=== PATIENT | male | born 1955 | race Caucasian/White ===

== ENCOUNTER 2019-06-13 19:57 | Emergency (ER) | payer MEDICARE, MEDICAID, SELFPAY ==
[2019-06-13 19:58] VITALS: BP 137/63; PULSE 64; RESP 16; TEMP 36.6; O2SAT 95; BMI 36.6
--- NOTE | 2019-06-13 20:09 | ED_ITS ---
Entered by Peace Fitzpatrick, acting as scribe for Juvenal Monique MD, [facility] HPI - Neuro Symptoms/Deficit General: Chief Complaint: Neuro Symptoms/Deficit Stated Complaint: numbness and tingling Time Seen by Provider: 06/13/19 20:08 Source: patient, EMS and RN notes reviewed Mode of arrival: EMS Limitations: no limitations History of Present Illness: HPI Narrative: 63 yo male presents to ED with complaints of R sided numbness. He said it began about [id number] this morning. He had tingling on the R side of his neck, his R arm and R leg. He said he could hardly get around when it began, becoming very short of breath. He said he didn't come in earlier because he was hoping it would get better. He said his whole body became jittery and he had to catch the wall to keep from falling. He said the jitters happened one other time 5 years ago. He sat down on the floor until it passed. The patient has a strong family history of strokes. Onset (ago): hour(s) (12) Time: 08:30 Timing confirmed by: other (patient) Location: right arm (tingle), right leg (tingle) and other (R side neck tingle) History of same: No Severity: mild Quality: tingling Relieving factors: none Exacerbating factors: none Context: sudden onset On Anticoagulants: Yes Associated symptoms: Reports chest pain and tingling; Deny headache(s), nausea or vomiting Treatments Prior to Arrival: none Review of Systems General: Reports: 10 or more systems reviewed and unremarkable except in HPI and below Const: Denies: fever, chills or body aches Eyes: Reports: blind spots; Denies: change in vision or blurry vision ENMT: Denies: throat pain, enlarged tonsils, painful swallowing, hoarseness, mouth pain or swelling of lips/tongue Card: Reports: chest pain; Denies: palpitations, irregular heart rhythm, edema or swelling of feet/ankles Resp: Denies: shortness of breath, productive cough or non-productive cough GI: Denies: abdominal pain, nausea or vomiting : Denies: flank pain, painful urination, urinary frequency, urinary urgency or urinary hesitancy Musc: Denies: neck pain, back pain or extremity swelling Skin/Breast: Denies: rash, itching or redness Neuro: Denies: headache, numbness in extremities or weakness in extremities Endo: Denies: excessive urination, excessive thirst or tired all the time PFSH ED PFSH: Social History Smoking and tobacco status: former smoker NIH stroke score NIHSS: Level Of Consciousness - 1a: 0 Level Of Consciousness Questions - 1b: Both Correct Level Of Consciousness Commands - 1c: Both Correct Best Gaze - 2: Normal Visual Stone - 3: No Visual Loss Facial Palsy - 4: Normal Motor Arm Right - 5: No Drift Motor Arm Left - 5: No Drift Motor Leg Right - 6: No Drift Motor Leg Left - 6: No Drift Limb Ataxia - 7: Absent Sensory - 8: Normal Best Language - 9: No Aphasia Dysarthia - 10: Normal Extinction And Inattention - 11: 0 Score: Total Score: 0 Physical Exam Const: COMMON NORMALS: no apparent distress, average body habitus, oriented x3, no limitations, healthy appearing, alert and well nourished HENMT: COMMON NORMALS: normocephalic, head/scalp atraumatic and moist oral mucous membranes HEAD & SCALP: normocephalic and atraumatic Eye: COMMON NORMALS: PERRL, EOMs intact bilaterally, conjunctivae normal and no scleral icterus CONJUNCTIVA: Yes conjunctivae normal PUPIL: Yes PERRL Neck/C-Spine: COMMON NORMALS: full ROM, supple, no meningeal signs, no JVD and no carotid bruits Chest: COMMONS NORMALS: inspection of chest normal and palpation of chest normal Resp: COMMON NORMALS: normal respiratory effort, no retractions, no use of accessory muscles, clear to auscultation bilaterally and percussion normal AUSCULTATION: clear to auscultation bilaterally PERCUSSION: percussion normal Cardio: COMMON NORMALS: no JVD, regular rate, regular rhythm, S1 normal heart sound, S2 normal heart sound, no gallops, no clicks, no murmurs, no rub and peripheral pulses 2+ throughout RATE: regular rate RHYTHM: regular rhythm HEART SOUNDS: S1 normal and S2 normal PERIPHERAL PULSES: pulses 2+ throughout GI: COMMON NORMALS: normal to inspection, nondistended, normoactive bowel sounds, soft to palpation, non-tender, no hepatosplenomegaly, no masses and no bruits PALPATION: Yes soft and Yes no hepatosplenomegaly : COMMON NORMALS: Yes no CVA tenderness BLADDER/KIDNEY EXAM: Yes no CVA tenderness Back/Pelvis: COMMON NORMALS: no CVA tenderness Extremity: COMMON NORMALS: normal to inspection, full ROM, normal capillary refill, no calf tenderness and no pedal edema Neuro: COMMON NORMALS: oriented x3 SENSORIUM/ORIENTATION: Yes alert MENINGEAL SIGNS: Yes no meningeal signs Skin: COMMON NORMALS: no rashes or lesions noted, no wounds, skin turgor normal, no jaundice, no petechiae and no mottling GENERAL SKIN EXAM: no rashes or lesions noted and turgor normal Course Vital Signs: Vital signs: Vital Signs Temperature 97.8 F 06/13/19 19:58 Pulse Rate 71 06/13/19 23:05 Respiratory Rate 16 06/13/19 23:05 Blood Pressure 120/48 06/13/19 23:05 Pulse Oximetry 97 06/13/19 23:05 MDM - Neuro Symptoms/Deficit 2 MDM Narrative: Medical decision making narrative: Patient with facial paresthesia and was concerned that he may have had a CVA. Symptoms started early this morning. CT was negative examination unremarkable. NIH 0. He is discharged home with no new orders. He is to follow-up with his primary care provider Medical Records: Attestation: I reviewed the patient's medical records. Lab Data: Attestation: I reviewed the patient's lab results. Labs: Lab Results 06/13/19 06/13/19 06/13/19 Range/Units 20:44 20:44 21:00 WBC 8.0 (4.0-10.0) 10^3/ uL RBC 4.60 (4.1-5.3) 10^6/u L Hgb 11.4 L (11.7-16.6) g/dL Hct 38.3 L (42.0-52.0) % MCV 83.3 (80-94) fL MCH 24.8 L (28.0-34.0) pg MCHC 29.8 L (30.0-36.0) g/dL RDW 17.4 H (12.1-15.1) % Plt Count 229 (130-400) 10^3/c mm MPV 11.5 H (7.4-10.4) fL Neut % (Auto) 61.9 % Lymph % (Auto) 21.6 % [place] % (Auto) 11.3 % Eos % (Auto) 4.0 % Baso % (Auto) 0.6 % Neut # (Auto) 5.0 (1.8-7.7) 10^3/u L Lymph # (Auto) 1.7 (0.8-4.8) 10^3/u L [place] # (Auto) 0.9 (0.2-0.9) 10^3/u L Eos # (Auto) 0.3 (0.0-0.8) 10^3/u L Baso # (Auto) 0.1 (0.0-0.1) 10^3/u L Nucleated RBC % (a uto) 0 % Nucleated RBCs # 0.0 /100WBC Sodium 139 (136-145) mmol/L Potassium 4.3 (3.5-5.1) mmol/L Chloride 102 (98-107) mmol/L Carbon Dioxide 23 (22-29) mmol/L Anion Gap 18.3 (5-19) BUN 20 (8-23) mg/dL Creatinine 1.0 (0.7-1.2) mg/dL GFR Calculation 75.7 L (90-130) mL/min Glucose 105 (65-115) mg/dL Calcium 9.4 (8.5-10.5) mg/dL Total Bilirubin 0.2 (0.15-1.2) mg/dL AST 20 (0-40) U/L ALT 29 (0-41) U/L Alkaline Phosphata se 102 (40-130) IU/L Total Protein 8.2 (6.6-8.7) g/dL Albumin 3.8 (3.5-5.2) g/dL Globulin 4.4 (1.3-4.6) g/dL Urine Color Straw (Yellow) Urine Appearance Clear (CLEAR) Urine pH 5 (5-7) Ur Specific Gravit y 1.015 (1.005-1.030) Urine Protein Neg (Negative) Urine Glucose (UA) Norm (Normal) Urine Ketones Negative (Negative) Urine Occult Blood Neg (Negative) Urine Nitrate Negative (Negative) Urine Bilirubin Neg (NEGATIVE) Urine Urobilinogen Norm (Negative) mg/dL Ur Leukocyte Hyacinth ase Negative (Negative) Imaging Data^: CT Head: Radiologist's impression: [address] [address] [address] Scan Report Signed Patient: Chandler Cool #: [id number] : 7Acct#:[id number] Age/Sex: 63 / MADM Date: 06/13/19 Loc: ERRoom/Bed: Attending Dr: Ordering Provider/Ordering MD: Juvenal Monique MD, [facility] Date of Service: 06/13/19 Procedure(s): CT head wo con* [id number] Accession Number(s): [id number] Report Number: [id number] PROCEDURE INFORMATION: Exam: CT Head Without Contrast Exam date and time: 06/13/2019 8:34 PM Age: 63 years old Clinical indication: Weakness, extremity and weakness, facial; Right; Additional info: Stroke like symptoms TECHNIQUE: Imaging protocol: Computed tomography of the head without contrast. Total DLP: 882.63 mGy-cm Radiation optimization: All CT scans at this facility use at least one of these dose optimization techniques: automated exposure control; mA and/or kV adjustment per patient size (includes targeted exams where dose is matched to clinical indication); or iterative reconstruction. COMPARISON: No relevant prior studies available. FINDINGS: Brain: There is hypoattenuation in the periventricular and subcortical white matter consistent with chronic microvascular disease. There is no significant mass effect or midline shift. No sign of acute infarction. There is no acute intracranial hemorrhage. Ventricles: Normal. No ventriculomegaly. Bones/joints: The calvarium is intact. Sinuses: The paranasal sinuses are clear. Mastoid air cells: The mastoid air cells are clear. Orbits: Left phthisis bulbi. Soft tissues: The visible extracranial soft tissues are unremarkable. CT/CT head wo con* [id number] IMPRESSION: No acute findings. Radiation Dose CTDIVOL = (mGy): DLP = 882.63 (mGy-cm) Dictated By:Raj Herrera MD Signed By:Raj Herrera MDSigned Date/Time:06/13/192144 DD/ EKG Data^: EKG 1: Attestation: I personally reviewed and interpreted this EKG as follows: EKG interpretation date: 06/13/19 EKG interpretation time: 21:04 Prior EKG tracings: not available for review Interpretation: Normal sinus rhythm. Moderate intraventricular conduction delay. Heart rate 63. No ST changes. Discharge Plan Discharge Patient Disposition: Home, Self-Care Clinical Impression: Paresthesia Condition: Stable Prescriptions: Continued furosemide 40 mg Tablet 40 mg PO BID RF: 0 atorvastatin 40 mg Tablet 40 mg PO DAILY RF: 0 carvedilol 6.25 mg Tablet 6.25 mg PO BID RF: 0 trazodone 50 mg Tablet 50 mg PO DAILY RF: 0 sertraline 100 mg Tablet 100 mg PO DAILY RF: 0 clopidogrel 75 mg Tablet 75 mg PO DAILY RF: 0 digoxin 250 mcg (0.25 mg) Tablet 250 mcg PO DAILY RF: 0 Iron (ferrous sulfate) 325 mg (65 mg iron) Tablet 325 mg PO DAILY RF: 0 Stool Softener 100 mg Capsule 100 mg PO DAILY RF: 0 gabapentin 300 mg Capsule 300 mg PO TID RF: 0 aspirin 81 mg Tablet,Chewable 81 mg PO DAILY RF: 0 Pain Reliever Plus 250-250-65 mg Tablet 1 tab PO Q6H PRN (Reason: Pain) RF: 0 Dairy Aid 3,000 unit Tablet,Chewable 3,000 unit PO QID PRN (Reason: eating dairy) RF: 0 [place]-3 Fish Oil 300-1,000 mg Capsule PO DAILY RF: 0 Entresto 49-51 mg Tablet 1 tab PO BID RF: 0 Discharge Orders: Discharge Order (Routine); Ordered 06/13/19 Ordered By: Juvenal Monique Discharge Diet: Usual diet Discharge Activity: Resume usual activity Patient Instructions: Paresthesia (ED) Activity Restrictions/Additional Instructions: Return for any new or worsening symptoms. Follow-up with your primary care provider within 3 days. Take your medications as prescribed. Discharge Date/Time: 06/13/19 23:05 Coding Level of Care Code ED Spinner Operator for Chg Fwd Exam Comprehensive The documentation recorded by the Nanette sosa Valerie R, accurately reflects the service I personally performed and the decisions made by Eneida thornton Adegoke I, MD, [facility] Jun 13, 2019 19:57
--- NOTE | 2019-06-13 20:27 | ECG_ITS ---
Measurements Intervals [place] Rate: 63 P: -2 VT: 139 QRS: 1 QRSD: 108 T: 75 QT: 390 QTc: 402 SINUS RHYTHM MODERATE INTRAVENTRICULAR CONDUCTION DELAY [105+ ms QRS DURATION, 80+ ms Q/S IN V1/V2, NO Q AND 60+ ms R IN I/aVL/V5/V6] NONSPECIFIC ST & T-WAVE ABNORMALITY No previous ECG available for comparison Electronically Signed On 06-14-2019 9:13:22 PIG BREEDER by Kvng Belcher M.D. [email or web address]
--- NOTE | 2019-06-13 20:27 | CTR_ITS ---
PROCEDURE INFORMATION: Exam: CT Head Without Contrast Exam date and time: 06/13/2019 8:34 PM Age: 63 years old Clinical indication: Weakness, extremity and weakness, facial; Right; Additional info: Stroke like symptoms TECHNIQUE: Imaging protocol: Computed tomography of the head without contrast. Total DLP: 882.63 mGy-cm Radiation optimization: All CT scans at this facility use at least one of these dose optimization techniques: automated exposure control; mA and/or kV adjustment per patient size (includes targeted exams where dose is matched to clinical indication); or iterative reconstruction. COMPARISON: No relevant prior studies available. FINDINGS: Brain: There is hypoattenuation in the periventricular and subcortical white matter consistent with chronic microvascular disease. There is no significant mass effect or midline shift. No sign of acute infarction. There is no acute intracranial hemorrhage. Ventricles: Normal. No ventriculomegaly. Bones/joints: The calvarium is intact. Sinuses: The paranasal sinuses are clear. Mastoid air cells: The mastoid air cells are clear. Orbits: Left phthisis bulbi. Soft tissues: The visible extracranial soft tissues are unremarkable. CT/CT head wo con* [id number] IMPRESSION: No acute findings. Radiation Dose CTDIVOL = (mGy): DLP = 882.63 (mGy-cm)
[2019-06-13 20:54] LABS: Basophils # 0.1 10^3/uL (0.0-0.1); Basophils % 0.6 %; Eosinophils # 0.3 10^3/uL (0.0-0.8); Hematocrit 38.3 % (42.0-52.0); Hemoglobin 11.4 g/dL (11.7-16.6); Lymphocytes # 1.7 10^3/uL (0.8-4.8); Lymphocytes % 21.6 %; Mean Corpuscular HGB Conc 29.8 g/dL (30.0-36.0); Mean Corpuscular Hemoglobin 24.8 pg (28.0-34.0); Mean Corpuscular Volume 83.3 fL (80-94); Mean Platelet Volume 11.5 fL (7.4-10.4); Monocytes # 0.9 10^3/uL (0.2-0.9); Monocytes % 11.3 %; Neutrophils % 61.9 %; Nucleated Red Blood Cells % 0 %; Platelet Count 229 10^3/cmm (130-400); Red Cell Distribution Width 17.4 % (12.1-15.1)
[2019-06-13 21:04] LABS: Add Urine Microscopic? NO
[2019-06-13 21:07] LABS: Alanine Aminotransferase 29 U/L (0-41); Albumin Level 3.8 g/dL (3.5-5.2); Alkaline Phosphatase 102 IU/L (40-130); Anion Gap 18.3 (5-19); Aspartate Amino Transferase 20 U/L (0-40); Blood Urea Nitrogen 20 mg/dL (8-23); Calcium 9.4 mg/dL (8.5-10.5); Carbon Dioxide 23 mmol/L (22-29); Chloride 102 mmol/L (98-107); Globulin 4.4 g/dL (1.3-4.6); Glomerular Filtration Rate 75.7 mL/min (90-130); Glucose 105 mg/dL (65-115); Potassium 4.3 mmol/L (3.5-5.1); Sodium 139 mmol/L (136-145); Total Bilirubin 0.2 mg/dL (0.15-1.2); Total Protein 8.2 g/dL (6.6-8.7)
[2019-06-13 21:28] LABS: Bilirubin Urine Neg (NEGATIVE); Blood Urine Neg (Negative); Glucose Urine UA Norm (Normal); Ketones Urine Negative (Negative); Leukocyte Esterase Urine Negative (Negative); Nitrate Urine Negative (Negative); Protein Urine Neg (Negative); Specific Gravity, Urine 1.015 (1.005-1.030); Urine Appearance Clear (CLEAR); Urine Color Straw (Yellow); Urobilinogen Urine Norm (Negative); pH Urine 5 (5-7)
[2019-06-13 21:44] VITALS: BP 125/51; PULSE 67; RESP 17; O2SAT 95
[2019-06-13] MEDS: acetaminophen 500 mg Tablet 1000 MG PO (22:09)
[2019-06-13 23:05] VITALS: BP 120/48; PULSE 71; RESP 16; O2SAT 97
== END 2019-06-13 23:05 | disposition home or self-care (01) ==
PROVIDERS: Emergency Provider Family Medicine
DX: R20.2 Paresthesia of skin (principal); Z87.891 Personal history of nicotine dependence; Z82.3 Family history of stroke
CPT/HCPCS: 70450; 80053; 81003; 85025; 93005; 99281; 99282; 99283; A9270

== ENCOUNTER 2020-09-16 13:09 | Emergency (ER) | payer MEDICARE, MEDICAID, SELFPAY ==
[2020-09-16 13:12] VITALS: BP 169/79; PULSE 92; RESP 18; O2SAT 93; BMI 36.7
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
[2020-09-16 13:51] LABS: Basophils # 0.1 10^3/uL (0.0-0.1); Basophils % 0.7 %; Eosinophils # 0.3 10^3/uL (0.0-0.8); Eosinophils % 3.6 %; Hematocrit 34.4 % (42.0-52.0); Hemoglobin 9.8 g/dL (11.7-16.6); Lymphocytes # 0.9 10^3/uL (0.8-4.8); Lymphocytes % 12.5 %; Mean Corpuscular HGB Conc 28.5 g/dL (30.0-36.0); Mean Corpuscular Hemoglobin 22.8 pg (28.0-34.0); Mean Platelet Volume 11.3 fL (7.4-10.4); Monocytes # 0.5 10^3/uL (0.2-0.9); Monocytes % 7.1 %; Neutrophils % 75.2 %; Nucleated Red Blood Cells % 0 %; Platelet Count 244 10^3/cmm (130-400); Red Cell Distribution Width 22.6 % (12.1-15.1); White Blood Count 7.5 10^3/uL (4.0-10.0)
[2020-09-16 14:14] LABS: Slide Review Slide Review Perform
[2020-09-16 14:20] LABS: Alanine Aminotransferase 36 U/L (0-41); Albumin Level 3.7 g/dL (3.5-5.2); Alkaline Phosphatase 98 IU/L (40-130); Anion Gap 16.3 (5-19); Aspartate Amino Transferase 27 U/L (0-40); Blood Urea Nitrogen 11 mg/dL (8-23); Calcium 8.7 mg/dL (8.5-10.5); Carbon Dioxide 23 mmol/L (22-29); Chloride 103 mmol/L (98-107); Globulin 3.9 g/dL (1.3-4.6); Glomerular Filtration Rate 97.3 mL/min (90-130); Glucose 89 mg/dL (65-115); Osmolality Calculated 285 mOsm/kg (285-295); Potassium 4.3 mmol/L (3.5-5.1); Sodium 138 mmol/L (136-145); Thyroid Stimulating Hormone 2.72 uIU/mL (0.27-4.20); Total Bilirubin 0.2 mg/dL (0.15-1.2); Total Protein 7.6 g/dL (6.6-8.7)
[2020-09-16 14:21] LABS: Add Urine Microscopic? NO; Charge for UA Resulting for Rev
[2020-09-16 14:21] LABS: Acetaminophen < 5.0 ug/mL (10-30); Alcohol Level < 10 mg/dL (0-10); Salicylate < 0.3 mg/dL (3-10)
[2020-09-16 14:24] LABS: Bilirubin Urine Neg (Negative); Blood Urine Neg (Negative); Glucose Urine UA Norm (Normal); Ketones Urine Negative (Negative); Leukocyte Esterase Urine Negative (Negative); Nitrate Urine Negative (Negative); Protein Urine Neg (Negative); Urine Appearance Clear (CLEAR); Urine Color Yellow (Yellow); Urobilinogen Urine Norm (Negative); pH Urine 6 (5-7)
[2020-09-16 14:33] LABS: Amphetamines Screen Urine Negative (Negative); Barbiturates Screen Urine Negative (Negative); Benzodiazepines Screen Urine Positive (Negative); Cocaine Screen Urine Negative (Negative); Opiate Screen Urine Positive (Negative); PCP Screen Urine Negative (Negative); THC Screen Urine Negative (Negative)
--- NOTE | 2020-09-16 15:24 | PC.PHAR ---
PT BROUGHT IN A HANDWRITTEN LIST FROM HOME HEALTH. IT DIDN'T MATCH EXACTLY THE PHARMACY LIST. THE PT LOOKED AT THE LIST I MADE THAT MATCHED AND THE MEDS THAT DIDN'T MATCH. HE POINTED OUT THE ONES HE TAKES. HE WAS VERY SURE OF HIS MEDICATION.
[2020-09-16] MEDS: iohexol 300 mg/mL 100 mL Btl IV (16:02)
--- NOTE | 2020-09-16 17:00 | W.ED.PSYCH ---
HPI - Psych General: Chief Complaint: Psychiatric Symptoms Stated Complaint: depression Time Seen by Provider: 09/16/20 13:23 History of Present Illness: HPI Narrative: The patient is a 65-year-old male who comes to the ER complaining of unhappiness. He denies suicidal and homicidal ideations as well as hallucinations or psychotic features. He says he is going through stress and he has increased anxiety and nerves related to his living situation. He lives with his niece and her who are getting which is compromising his living situation. 3 weeks ago he also dropped a knife he was sharpening which punctured him in the left anterior thigh. He was on IV vancomycin at an outside facility and is taking doxycycline and clindamycin with a home health care nurse who comes every other day to pack the wound. He says that was not an attempt to hurt himself it was an accident and the knife dropped. He says he takes some medications but he is poorly compliant with them. He does take his antibiotics. Onset (ago): day(s) (1) Relieving factors: none Exacerbating factors: none Context: significant life stressor Associated psychiatric symptoms: depression Associated symptoms: Reports depression; Deny auditory hallucinations, visual hallucinations, homicidal ideation or suicidal ideation Review of Systems General: Reports: 10 or more systems reviewed and unremarkable except in HPI and below Const: Denies: fatigue Eyes: Denies: change in vision, blurry vision or eye redness ENMT: Denies: throat pain, swelling of lips/tongue, ear or mastoid pain or nasal congestion Card: Denies: chest pain, palpitations, irregular heart rhythm, edema, dyspnea on exertion or orthopnea Resp: Denies: dyspnea, productive cough or non-productive cough GI: Denies: abdominal pain, diarrhea or GI cramping : Denies: flank pain, urinary frequency or urinary urgency Musc: Denies: neck pain, back pain, extremity pain, joint pain, joint redness, limited range of motion or muscle weakness Skin/Breast: Denies: rash, pruritus, erythema, skin pain or skin tenderness Neuro: Denies: headache(s), numbness in extremities, weakness in extremities, sensory changes, difficulty walking, dizziness, confusion or Slurred speech present Psych: Reports: depression; Denies: visual hallucinations, auditory hallucinations, suicidal ideation or homicidal ideation Endo: Denies: polyuria All/Imm: Denies: urticaria, throat swelling or tongue swelling PFSH ED PFSH: Social History Smoking and tobacco status: former smoker Physical Exam Const: COMMON NORMALS: no acute distress, average body habitus, patient oriented x3, no limitations, healthy appearing, alert and well nourished GENERAL APPEARANCE: cooperative, comfortable and well developed ORIENTATION/CONSCIOUSNESS: Yes awake, Yes oriented to person, Yes oriented to place and Yes oriented to time HENMT: COMMON NORMALS: normocephalic, external ears normal and Normal external nose present HEAD & SCALP: normal to inspection and normocephalic NOSE: Normal external nose present EXTERNAL EAR: Yes external ears normal MOUTH: Normal oral and palatal mucosa present THROAT: posterior oropharynx normal Eye: COMMON NORMALS: Equal, round and reactive pupils present and EOMs intact bilaterally GENERAL EYE: appearance normal, both eyes and all related structures PUPIL: Yes Equal, round and reactive pupils present Neck/C-Spine: COMMON NORMALS: full ROM, no lymphadenopathy, no meningeal signs and no JVD GENERAL: Yes normal visual inspection Lymph: LYMPHATIC: no lymphadenopathy noted Chest: COMMONS NORMALS: normal inspection of the chest and normal palpation of entire chest wall Resp: COMMON NORMALS: normal respiratory effort, No retractions, No use of accessory muscles, clear to auscultation bilaterally and percussion normal EFFORT & INSPECTION: Yes able to speak in complete sentences AUSCULTATION: clear to auscultation bilaterally PERCUSSION: percussion normal Cardio: COMMON NORMALS: no JVD, regular rate, regular rhythm, S1 normal heart sound present, S2 normal heart sound present and Peripheral pulses 2+ throughout RATE: regular rate RHYTHM: regular rhythm HEART SOUNDS: S1 normal heart sound present and S2 normal heart sound present PERIPHERAL PULSES: Peripheral pulses 2+ throughout GI: COMMON NORMALS: Normal to inspection, nondistended, normoactive bowel sounds present, Soft to palpation, non-tender and no masses INSPECTION: Yes normal to inspection PALPATION: Yes Soft to palpation : COMMON NORMALS: Yes no CVA tenderness BLADDER/KIDNEY EXAM: Yes no CVA tenderness Back/Pelvis: COMMON NORMALS: no CVA tenderness, thoracic and lumbar spine normal to inspection, no thoracic nor lumbar tenderness and thoraco-lumbar ROM normal Extremity: COMMON NORMALS: normal to inspection, full ROM, capillary refill normal, no joint enlargement and no pedal edema NARRATIVE EXTREMITY EXAM: 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 GENERAL: Yes normal exam except as noted Neuro: COMMON NORMALS: patient oriented x3, CN's II-XII intact bilaterally, moves all extremities, no focal motor deficits, no sensory deficits noted and gait normal SENSORIUM/ORIENTATION: Yes alert, Yes oriented to person, Yes oriented to place and Yes oriented to time MENINGEAL SIGNS: Yes no meningeal signs Psych: COMMON NORMALS: mental status grossly normal, Normal thought process present, cooperative, normal affect and speech normal ATTITUDE: Yes calm SPEECH: Yes normal speech MOOD & AFFECT: Yes depressed mood THOUGHT PROCESS: Normal thought process present THOUGHT CONTENT: No Suicidality present, No Homicidality present and No Hallucination(s) present Skin: COMMON NORMALS: no rashes or lesions noted NARRATIVE SKIN EXAM: Left anterior wound approximately 3 cm in diameter. Mild tender. No significant discharge from the wound. It is open. No packing present. He was given pain medication and it was packed after it was cleaned with iodine swabs. He gets it packed every other day by his home health nurse. No significant cellulitis changes to the skin. GENERAL SKIN EXAM: no rashes or lesions noted Course Vital Signs: Vital signs: Vital Signs Pulse Rate 92 09/16/20 13:12 Respiratory Rate 18 09/16/20 13:12 Blood Pressure 169/79 09/16/20 13:12 Pulse Oximetry 93 09/16/20 13:12 MDM - Psych MDM Narrative: Medical decision making narrative: The patient came in complaining of increased stress at home. He denies suicidal, homicidal, and psychotic features in the ED but says he is depressed about possibly losing his living situation related to his niece and her getting a divorce at the house where he lives. He was seen and evaluated by Dr. Barber who recommended discharge as he is not meeting inpatient criteria. The patient is now comfortable with going back to that house. He has a wound on his left anterior thigh. CT does not show abscess. It does show a cellulitis process which he is taking doxycycline and clindamycin daily to treat. He is followed by a home health care nurse every other day who packs his wound and checks up on him. I packed the wound myself today after cleaning it and he is stable for discharge back home. Lab Data: Labs: Lab Results 09/16/20 09/16/20 09/16/20 Range/Units 13:45 13:45 14:15 WBC 7.5 (4.0-10.0) 10^3/ uL RBC 4.30 (4.1-5.3) 10^6/u L Hgb 9.8 L (11.7-16.6) g/dL Hct 34.4 L (42.0-52.0) % MCV 80.0 (80-94) fL MCH 22.8 L (28.0-34.0) pg MCHC 28.5 L (30.0-36.0) g/dL RDW 22.6 H (12.1-15.1) % Plt Count 244 (130-400) 10^3/c mm MPV 11.3 H (7.4-10.4) fL Neut % (Auto) 75.2 % Lymph % (Auto) 12.5 % Bacon % (Auto) 7.1 % Eos % (Auto) 3.6 % Baso % (Auto) 0.7 % Neut # (Auto) 5.60 (1.8-7.7) 10^3/u L Lymph # (Auto) 0.9 (0.8-4.8) 10^3/u L Bacon # (Auto) 0.5 (0.2-0.9) 10^3/u L Eos # (Auto) 0.3 (0.0-0.8) 10^3/u L Baso # (Auto) 0.1 (0.0-0.1) 10^3/u L Nucleated RBC % (a uto) 0 % Nucleated RBCs # 0.0 /100WBC Sodium 138 (136-145) mmol/L Potassium 4.3 (3.5-5.1) mmol/L Chloride 103 (98-107) mmol/L Carbon Dioxide 23 (22-29) mmol/L Anion Gap 16.3 (5-19) BUN 11 (8-23) mg/dL Creatinine 0.8 (0.7-1.2) mg/dL GFR Calculation 97.3 (90-130) mL/min Glucose 89 (65-115) mg/dL Calculated Osmolal ity 285 (285-295) mOsm/k g Calcium 8.7 (8.5-10.5) mg/dL Total Bilirubin 0.2 (0.15-1.2) mg/dL AST 27 (0-40) U/L ALT 36 (0-41) U/L Alkaline Phosphata se 98 (40-130) IU/L Total Protein 7.6 (6.6-8.7) g/dL Albumin 3.7 (3.5-5.2) g/dL Globulin 3.9 (1.3-4.6) g/dL TSH 2.72 (0.27-4.20) uIU/ mL Urine Color Yellow (Yellow) Urine Appearance Clear (CLEAR) Urine pH 6 (5-7) Ur Specific Gravit y 1.010 (1.005-1.030) Urine Protein Neg (Negative) Urine Glucose (UA) Norm (Normal) Urine Ketones Negative (Negative) Urine Blood Neg (Negative) Urine Nitrate Negative (Negative) Urine Bilirubin Neg (Negative) Urine Urobilinogen Norm (Negative) mg/dL Ur Leukocyte Hyacinth ase Negative (Negative) Salicylates < 0.3 L (3-10) mg/dL Urine Opiates Scre en (Negative) ng/mL Acetaminophen < 5.0 L (10-30) ug/mL Ur Barbiturates Sc reen (Negative) ng/mL Ur Phencyclidine S crn (Negative) ng/mL Ur Amphetamines Sc reen (Negative) ng/mL U Benzodiazepines Scrn (Negative) ng/mL Urine Cocaine Scre en (Negative) ng/mL U Marijuana (THC) Screen (Negative) ng/mL Ethyl Alcohol < 10 (0-10) mg/dL 09/16/20 Range/Units 14:15 WBC (4.0-10.0) 10^3/ uL RBC (4.1-5.3) 10^6/u L Hgb (11.7-16.6) g/dL Hct (42.0-52.0) % MCV (80-94) fL MCH (28.0-34.0) pg MCHC (30.0-36.0) g/dL RDW (12.1-15.1) % Plt Count (130-400) 10^3/c mm MPV (7.4-10.4) fL Neut % (Auto) % Lymph % (Auto) % Bacon % (Auto) % Eos % (Auto) % Baso % (Auto) % Neut # (Auto) (1.8-7.7) 10^3/u L Lymph # (Auto) (0.8-4.8) 10^3/u L Bacon # (Auto) (0.2-0.9) 10^3/u L Eos # (Auto) (0.0-0.8) 10^3/u L Baso # (Auto) (0.0-0.1) 10^3/u L Nucleated RBC % (a uto) % Nucleated RBCs # /100WBC Sodium (136-145) mmol/L Potassium (3.5-5.1) mmol/L Chloride (98-107) mmol/L Carbon Dioxide (22-29) mmol/L Anion Gap (5-19) BUN (8-23) mg/dL Creatinine (0.7-1.2) mg/dL GFR Calculation (90-130) mL/min Glucose (65-115) mg/dL Calculated Osmolal ity (285-295) mOsm/k g Calcium (8.5-10.5) mg/dL Total Bilirubin (0.15-1.2) mg/dL AST (0-40) U/L ALT (0-41) U/L Alkaline Phosphata se (40-130) IU/L Total Protein (6.6-8.7) g/dL Albumin (3.5-5.2) g/dL Globulin (1.3-4.6) g/dL TSH (0.27-4.20) uIU/ mL Urine Color (Yellow) Urine Appearance (CLEAR) Urine pH (5-7) Ur Specific Gravit y (1.005-1.030) Urine Protein (Negative) Urine Glucose (UA) (Normal) Urine Ketones (Negative) Urine Blood (Negative) Urine Nitrate (Negative) Urine Bilirubin (Negative) Urine Urobilinogen (Negative) mg/dL Ur Leukocyte Hyacinth ase (Negative) Salicylates (3-10) mg/dL Urine Opiates Scre en Positive H (Negative) ng/mL Acetaminophen (10-30) ug/mL Ur Barbiturates Sc reen Negative (Negative) ng/mL Ur Phencyclidine S crn Negative (Negative) ng/mL Ur Amphetamines Sc reen Negative (Negative) ng/mL U Benzodiazepines Scrn Positive H (Negative) ng/mL Urine Cocaine Scre en Negative (Negative) ng/mL U Marijuana (THC) Screen Negative (Negative) ng/mL Ethyl Alcohol (0-10) mg/dL Discharge Plan Discharge Patient Disposition: Home Clinical Impression: Depression, Wound infection Condition: Stable Prescriptions: No Action tizanidine 2 mg tablet 2 mg PO Q8H PRN (Reason: MUSCLE SPASMS) RF: 0 metoprolol succinate 50 mg tablet extended release 24 hr 50 mg PO DAILY RF: 0 alprazolam 0.5 mg tablet 0.5 mg PO DAILY PRN (Reason: Anxiety) RF: 0 meclizine 25 mg Tablet 25 mg PO DAILY RF: 0 doxycycline monohydrate 100 mg capsule 100 mg PO DAILY RF: 0 ProAir HFA 90 mcg/actuation HFA aerosol inhaler 2 puff INHALATION Q4D PRN (Reason: WHEEZING, SHORTNESS OF BREATH) RF: 0 Flonase 50 mcg/actuation [place],Suspension 2 spray INTRANASAL DAILY RF: 0 Trulicity 0.75 mg/0.5 mL pen injector 0.75 mg SUBCUT Q7D RF: 0 multivitamin 1 tab PO DAILY RF: 0 furosemide 40 mg Tablet 40 mg PO BID RF: 0 atorvastatin 40 mg Tablet 40 mg PO DAILY RF: 0 carvedilol 6.25 mg Tablet 6.25 mg PO BID RF: 0 trazodone 50 mg Tablet 50 mg PO DAILY RF: 0 sertraline 100 mg Tablet 100 mg PO DAILY RF: 0 clopidogrel 75 mg Tablet 75 mg PO DAILY RF: 0 digoxin 250 mcg (0.25 mg) Tablet 250 mcg PO DAILY RF: 0 ferrous sulfate [Iron (ferrous sulfate)] 325 mg (65 mg iron) Tablet 325 mg PO DAILY RF: 0 docusate sodium [Stool Softener] 100 mg Capsule 100 mg PO DAILY RF: 0 gabapentin 300 mg Capsule 300 mg PO TID RF: 0 aspirin 81 mg Tablet,Chewable 81 mg PO DAILY RF: 0 Pain Reliever Plus 250-250-65 mg Tablet 1 tab PO Q6H PRN (Reason: Pain) RF: 0 Entresto 49-51 mg Tablet 1 tab PO BID RF: 0 Discharge Orders: Discharge ED (Routine); Ordered 09/16/20 Ordered By: Ruben Burt Referrals: Chase Cai DO [Primary Care Provider] - Discharge Diet: Advance as tolerated Discharge Activity: Resume usual activity Patient Instructions: Wound Infection (ED), Cellulitis (ED), Depression (ED), Opioid Safety Activity Restrictions/Additional Instructions: 1. Infected leg wound : CT does show there is an infection surrounding the lesion and you do take antibiotics for this already. Please follow-up with your primary care physician in a couple days for a wound check and continue to have your home health care nurse, and packed this. Make sure you take your antibiotics and your medications at home as directed. 2. Please return to the ER with any thoughts of hurting yourself or others. Make sure you follow-up with your primary care physician in a couple days to discuss your depression and life stressors. Coding Level of Care Code ED [employer] Specialist for [employer] F[employer] Exam Comprehensive
[2020-09-16] MEDS: morphine 4 mg/mL SDV 1 mL 2 MG IVP (17:03)
[2020-09-16 17:48] VITALS: PULSE 102; RESP 17; O2SAT 93
== END 2020-09-16 17:49 | disposition home or self-care (01) ==
PROVIDERS: Emergency Provider Family Medicine; PCP Family Medicine
DX: F32.9 Major depressive disorder, single episode, unspecified (principal); L08.89 Other specified local infections of the skin and subcutaneous tissue; Z87.891 Personal history of nicotine dependence; Z79.899 Other long term (current) drug therapy
CPT/HCPCS: 36415; 73701; 80053; 80306; 80307; 81003; 84443; 85025; 96374; 99283; J2270; Q9967

== ENCOUNTER 2022-08-16 04:04 | Emergency (ER) | payer MEDICARE, MEDICAID, SELFPAY ==
[2022-08-16 04:05] VITALS: BP 127/79; PULSE 94; RESP 19; TEMP 36.8; O2SAT 97; BMI 37.2
--- NOTE | 2022-08-16 04:08 | ED_ITS ---
Documented by User: Hayn Christiansen MD 08/16/22 04:39 HPI - Chest Pain General: Chief Complaint: Chest Pain Stated Complaint: CP Time Seen by Provider: 08/16/22 04:05 Source: patient and EMS Mode of arrival: EMS Limitations: no limitations History of Present Illness: 67-year-old male states he had a sharp pain in the center of his chest that is been ongoing for 3 days. States pain has been constant nature he states much worse with palpation he states also worse when he moves or tries to stretch back. Denies any shortness of breath denies any nausea or vomiting denies any cough or fever. Associated symptoms: Deny abdominal pain, dyspnea, fever(s), nausea or vomiting Review of Systems Const: Reports: change in appetite; Denies: fever(s), chills or body aches ENMT: Denies: throat pain or dental pain Card: Reports: chest pain Resp: Denies: dyspnea GI: Denies: abdominal pain, nausea, vomiting or diarrhea Musc: Denies: neck pain or back pain Neuro: Denies: headache(s) PFSH ED PFSH: Medical History (Updated 08/16/22 @ 07:22 by Jose Ramos DO) CHF (congestive heart failure) Social History Smoking and tobacco status: former smoker Physical Exam Const: COMMON NORMALS: no acute distress, patient oriented x3 and healthy appearing HENMT: COMMON NORMALS: normocephalic and atraumatic HEAD & SCALP: normocephalic and atraumatic Eye: COMMON NORMALS: conjunctivae normal CONJUNCTIVA: Yes conjunctivae normal Neck/C-Spine: COMMON NORMALS: full ROM and supple Chest: COMMONS NORMALS: normal inspection of the chest OTHER: point tender in center of chest reproduces pain Resp: COMMON NORMALS: normal respiratory effort, No retractions, No use of accessory muscles and clear to auscultation bilaterally AUSCULTATION: clear to auscultation bilaterally Cardio: COMMON NORMALS: regular rate, regular rhythm and No murmurs present (Cardio) RATE: regular rate RHYTHM: regular rhythm GI: COMMON NORMALS: Normal to inspection, nondistended, normoactive bowel sounds present, Soft to palpation, non-tender and no masses PALPATION: Yes Soft to palpation Extremity: COMMON NORMALS: normal to inspection and full ROM Neuro: COMMON NORMALS: patient oriented x3, moves all extremities and no focal motor deficits Psych: COMMON NORMALS: mental status grossly normal, Normal thought process present and cooperative THOUGHT PROCESS: Normal thought process present Skin: COMMON NORMALS: no rashes or lesions noted and no wounds GENERAL SKIN EXAM: no rashes or lesions noted Course Vital Signs: Vital signs: Vital Signs Temperature 98.3 F 08/16/22 04:05 Pulse Rate 95 08/16/22 06:00 Respiratory Rate 21 H 08/16/22 04:41 Blood Pressure 127/79 08/16/22 04:11 Pulse Oximetry 95 08/16/22 06:00 Oxygen Delivery Me thod Room Air 08/16/22 06:00 MDM - Chest Pain Lab Data 08/16/22 04:14 08/16/22 04:14 Laboratory Results WBC 8.9 10^3/uL (4.0-10.0) 08/16/22 04:14 RBC 4.10 10^6/uL (4.1-5.3) 08/16/22 04:14 Hgb 10.6 g/dL (11.7-16.6) L 08/16/22 04:14 Hct 35.4 % (42.0-52.0) L 08/16/22 04:14 MCV 86.3 fl (80-94) 08/16/22 04:14 MCH 25.9 pg (28.0-34.0) L 08/16/22 04:14 MCHC 29.9 g/dL (30.0-36.0) L 08/16/22 04:14 RDW 19.4 % (12.1-15.1) H 08/16/22 04:14 Plt Count 161 10^3/cmm (130-400) 08/16/22 04:14 MPV 11.1 fL (7.4-10.4) H 08/16/22 04:14 Neut % (Auto) 69.4 % 08/16/22 04:14 Lymph % (Auto) 12.2 % 08/16/22 04:14 [place] % (Auto) 10.4 % 08/16/22 04:14 Eos % (Auto) 3.3 % 08/16/22 04:14 Baso % (Auto) 0.6 % 08/16/22 04:14 Neut # (Auto) 6.16 10^3/uL (1.8-7.7) 08/16/22 04:14 Lymph # (Auto) 1.1 10^3/uL (0.8-4.8) 08/16/22 04:14 [place] # (Auto) 0.9 10^3/uL (0.2-0.9) 08/16/22 04:14 Eos # (Auto) 0.3 10^3/uL (0.0-0.8) 08/16/22 04:14 Baso # (Auto) 0.1 10^3/uL (0.0-0.1) 08/16/22 04:14 Nucleated RBC % (auto) 0 % 08/16/22 04:14 Nucleated RBCs # 0.0 /100WBC 08/16/22 04:14 PT 16.40 SECONDS (12.1-14.9) H 08/16/22 04:14 INR 1.28 (0.8-1.2) H 08/16/22 04:14 Sodium 137 mmol/L (136-145) 08/16/22 04:14 Potassium 4.7 mmol/L (3.5-5.1) 08/16/22 04:14 Chloride 101 mmol/L (98-107) 08/16/22 04:14 Carbon Dioxide 24 mmol/L (22-29) 08/16/22 04:14 Anion Gap 16.7 (5-19) 08/16/22 04:14 BUN 37 mg/dL (8-23) H 08/16/22 04:14 Creatinine 1.3 mg/dL (0.7-1.2) H 08/16/22 04:14 GFR Calculation 55.2 mL/min (90-130) L 08/16/22 04:14 Glucose 100 mg/dL (65-115) 08/16/22 04:14 Calculated Osmolality 293 mOsm/kg (285-295) 08/16/22 04:14 Calcium 9.0 mg/dL (8.5-10.5) 08/16/22 04:14 Total Bilirubin 0.2 mg/dL (0.15-1.2) 08/16/22 04:14 AST 16 U/L (0-40) 08/16/22 04:14 ALT 16 U/L (0-41) 08/16/22 04:14 Alkaline Phosphatase 108 U/L (40-130) 08/16/22 04:14 Troponin T Baseline 31 ng/L (0-15) H 08/16/22 04:14 Troponin T 120 Minute 29.71 ng/L (0-15) H 08/16/22 06:27 Delta Troponin T -1.29 ABS# (0-10) L 08/16/22 06:27 Total Protein 7.6 g/dL (6.6-8.7) 08/16/22 04:14 Albumin 3.3 g/dL (3.5-5.2) L 08/16/22 04:14 Globulin 4.3 g/dL (1.3-4.6) 08/16/22 04:14 Lipase 33 U/L (13-60) 08/16/22 04:14 Digoxin 0.4 ng/mL (0.6-1.2) L 08/16/22 04:14 EKG Data EKG 1: I personally reviewed and interpreted this EKG as follows: EKG interpretation date: 08/16/22 EKG interpretation time: 04:10 Interpretation: nsr hr [address] or t wave abnormalities qrs 108 qtc 413 Discharge Plan Discharge Patient Disposition: Home Clinical Impression: Acute chest wall pain Condition: Stable Prescriptions: No Action tizanidine 2 mg tablet 2 mg PO Q8H PRN (Reason: MUSCLE SPASMS) metoprolol succinate 50 mg tablet extended release 24 hr 50 mg PO DAILY alprazolam 0.5 mg tablet 0.5 mg PO DAILY PRN (Reason: Anxiety) meclizine 25 mg Tablet 25 mg PO DAILY doxycycline monohydrate 100 mg capsule 100 mg PO DAILY ProAir HFA 90 mcg/actuation HFA aerosol inhaler 2 puff INHALATION Q4D PRN (Reason: WHEEZING, SHORTNESS OF BREATH) Flonase 50 mcg/actuation [place],Suspension 2 spray INTRANASAL DAILY Trulicity 0.75 mg/0.5 mL pen injector 0.75 mg SUBCUT Q7D Rx Instructions: TAKE ON SATURDAY. multivitamin 1 tab PO DAILY furosemide 40 mg Tablet 40 mg PO BID atorvastatin 40 mg Tablet 40 mg PO DAILY carvedilol 6.25 mg Tablet 6.25 mg PO BID trazodone 50 mg Tablet 50 mg PO DAILY sertraline 100 mg Tablet 100 mg PO DAILY clopidogrel 75 mg Tablet 75 mg PO DAILY digoxin 250 mcg (0.25 mg) Tablet 250 mcg PO DAILY ferrous sulfate [Iron (ferrous sulfate)] 325 mg (65 mg iron) Tablet 325 mg PO DAILY docusate sodium [Stool Softener] 100 mg Capsule 100 mg PO DAILY gabapentin 300 mg Capsule 300 mg PO TID aspirin 81 mg Tablet,Chewable 81 mg PO DAILY Pain Reliever Plus 250-250-65 mg Tablet 1 tab PO Q6H PRN (Reason: Pain) Entresto 49-51 mg Tablet 1 tab PO BID Discharge Orders: Discharge ED (Routine); Ordered 08/16/22 Ordered By: Jose Ramos Referrals: Chase Cai DO [Primary Care Provider] - Patient Instructions: Opioid Safety, Pain Management Activity Restrictions/Additional Instructions: You were seen today for chest pain. Your chest pain is more musculoskeletal in nature your cardiac enzymes and EKG were unremarkable. Recommend that you use Tylenol or ibuprofen as needed for the discomfort follow-up with your primary care doctor return if you have further problems. Sign Out Sign Out Data: Patient Sign Out occurred on 08/16/22 at 06:11. Patient's care was discussed, and care was transferred from to Jose Ramos DO. Coding Level of Care Code ED Medical Billing Coordinator for Chg Fwd Documented by User: Jose Ramos DO 08/16/22 07:24 HPI - Chest Pain General: Chief Complaint: Chest Pain Stated Complaint: CP Time Seen by Provider: 08/16/22 04:05 [facility] ED PFSH: Medical History (Updated 08/16/22 @ 07:22 by Jose Ramos DO) CHF (congestive heart failure) Social History Smoking and tobacco status: former smoker Course Vital Signs: Vital signs: Vital Signs Temperature 98.3 F 04/20/23 04:05 Pulse Rate 95 08/16/22 06:00 Respiratory Rate 21 H 08/16/22 04:41 Blood Pressure 127/79 08/16/22 04:11 Pulse Oximetry 95 08/16/22 06:00 Oxygen Delivery Me thod Room Air 08/16/22 06:00 MDM - Chest Pain Medical Decision Making Assumed care from Dr. Christiansen at change of shift. Cardiac enzymes EKG unremarkable second troponin is negative delta is nonsignificant. Patient is no longer having ongoing pain but it is still reproducible with movement and with palpation will discharge home can use Tylenol or ibuprofen follow-up with his primary care doctor as any further problems. Medical Records I reviewed the patient's medical records. Lab Data I reviewed the patient's lab results. 08/16/22 04:14 08/16/22 04:14 Laboratory Results WBC 8.9 10^3/uL (4.0-10.0) 08/16/22 04:14 RBC 4.10 10^6/uL (4.1-5.3) 08/16/22 04:14 Hgb 10.6 g/dL (11.7-16.6) L 08/16/22 04:14 Hct 35.4 % (42.0-52.0) L 08/16/22 04:14 MCV 86.3 fl (80-94) 08/16/22 04:14 MCH 25.9 pg (28.0-34.0) L 08/16/22 04:14 MCHC 29.9 g/dL (30.0-36.0) L 08/16/22 04:14 RDW 19.4 % (12.1-15.1) H 08/16/22 04:14 Plt Count 161 10^3/cmm (130-400) 08/16/22 04:14 MPV 11.1 fL (7.4-10.4) H 08/16/22 04:14 Neut % (Auto) 69.4 % 08/16/22 04:14 Lymph % (Auto) 12.2 % 08/16/22 04:14 [place] % (Auto) 10.4 % 08/16/22 04:14 Eos % (Auto) 3.3 % 08/16/22 04:14 Baso % (Auto) 0.6 % 08/16/22 04:14 Neut # (Auto) 6.16 10^3/uL (1.8-7.7) 08/16/22 04:14 Lymph # (Auto) 1.1 10^3/uL (0.8-4.8) 08/16/22 04:14 [place] # (Auto) 0.9 10^3/uL (0.2-0.9) 08/16/22 04:14 Eos # (Auto) 0.3 10^3/uL (0.0-0.8) 08/16/22 04:14 Baso # (Auto) 0.1 10^3/uL (0.0-0.1) 08/16/22 04:14 Nucleated RBC % (auto) 0 % 08/16/22 04:14 Nucleated RBCs # 0.0 /100WBC 08/16/22 04:14 PT 16.40 SECONDS (12.1-14.9) H 08/16/22 04:14 INR 1.28 (0.8-1.2) H 08/16/22 04:14 Sodium 137 mmol/L (136-145) 08/16/22 04:14 Potassium 4.7 mmol/L (3.5-5.1) 08/16/22 04:14 Chloride 101 mmol/L (98-107) 08/16/22 04:14 Carbon Dioxide 24 mmol/L (22-29) 08/16/22 04:14 Anion Gap 16.7 (5-19) 08/16/22 04:14 BUN 37 mg/dL (8-23) H 08/16/22 04:14 Creatinine 1.3 mg/dL (0.7-1.2) H 08/16/22 04:14 GFR Calculation 55.2 mL/min (90-130) L 08/16/22 04:14 Glucose 100 mg/dL (65-115) 08/16/22 04:14 Calculated Osmolality 293 mOsm/kg (285-295) 08/16/22 04:14 Calcium 9.0 mg/dL (8.5-10.5) 08/16/22 04:14 Total Bilirubin 0.2 mg/dL (0.15-1.2) 08/16/22 04:14 AST 16 U/L (0-40) 08/16/22 04:14 ALT 16 U/L (0-41) 08/16/22 04:14 Alkaline Phosphatase 108 U/L (40-130) 08/16/22 04:14 Troponin T Baseline 31 ng/L (0-15) H 08/16/22 04:14 Troponin T 120 Minute 29.71 ng/L (0-15) H 08/16/22 06:27 Delta Troponin T -1.29 ABS# (0-10) L 08/16/22 06:27 Total Protein 7.6 g/dL (6.6-8.7) 08/16/22 04:14 Albumin 3.3 g/dL (3.5-5.2) L 08/16/22 04:14 Globulin 4.3 g/dL (1.3-4.6) 08/16/22 04:14 Lipase 33 U/L (13-60) 08/16/22 04:14 Digoxin 0.4 ng/mL (0.6-1.2) L 08/16/22 04:14 Discharge Plan Discharge Patient Disposition: Home Clinical Impression: Acute chest wall pain Condition: Stable Prescriptions: No Action tizanidine 2 mg tablet 2 mg PO Q8H PRN (Reason: MUSCLE SPASMS) metoprolol succinate 50 mg tablet extended release 24 hr 50 mg PO DAILY alprazolam 0.5 mg tablet 0.5 mg PO DAILY PRN (Reason: Anxiety) meclizine 25 mg Tablet 25 mg PO DAILY doxycycline monohydrate 100 mg capsule 100 mg PO DAILY ProAir HFA 90 mcg/actuation HFA aerosol inhaler 2 puff INHALATION Q4D PRN (Reason: WHEEZING, SHORTNESS OF BREATH) Flonase 50 mcg/actuation [place],Suspension 2 spray INTRANASAL DAILY Trulicity 0.75 mg/0.5 mL pen injector 0.75 mg SUBCUT Q7D Rx Instructions: TAKE ON SATURDAY. multivitamin 1 tab PO DAILY furosemide 40 mg Tablet 40 mg PO BID atorvastatin 40 mg Tablet 40 mg PO DAILY carvedilol 6.25 mg Tablet 6.25 mg PO BID trazodone 50 mg Tablet 50 mg PO DAILY sertraline 100 mg Tablet 100 mg PO DAILY clopidogrel 75 mg Tablet 75 mg PO DAILY digoxin 250 mcg (0.25 mg) Tablet 250 mcg PO DAILY ferrous sulfate [Iron (ferrous sulfate)] 325 mg (65 mg iron) Tablet 325 mg PO DAILY docusate sodium [Stool Softener] 100 mg Capsule 100 mg PO DAILY gabapentin 300 mg Capsule 300 mg PO TID aspirin 81 mg Tablet,Chewable 81 mg PO DAILY Pain Reliever Plus 250-250-65 mg Tablet 1 tab PO Q6H PRN (Reason: Pain) Entresto 49-51 mg Tablet 1 tab PO BID Discharge Orders: Discharge ED (Routine); Ordered 08/16/22 Ordered By: Jose Ramos Referrals: Chase Cai DO [Primary Care Provider] - Patient Instructions: Opioid Safety, Pain Management Activity Restrictions/Additional Instructions: You were seen today for chest pain. Your chest pain is more musculoskeletal in nature your cardiac enzymes and EKG were unremarkable. Recommend that you use Tylenol or ibuprofen as needed for the discomfort follow-up with your primary care doctor return if you have further problems. Sign Out Sign Out Data: Patient Sign Out occurred on 08/16/22 at 06:11. Patient's care was discussed, and care was transferred from to Jose Ramos DO. Coding Level of Care Code ED Medical Billing Coordinator for Anny Reynolds
--- NOTE | 2022-08-16 04:10 | ECG_ITS ---
[facility] Test Date: 2022-08-16 Pat Name: Gunner Cool Department: Room: Gender: Male Customer Service Driver: : [id number] Requested By: Hany Christiansen Order Number: [id number] Reading MD: Akilah Christian M.D. Measurements Intervals Vega Rate: 91 P: 0 FL: 143 QRS: -11 QRSD: 108 T: 143 QT: 364 QTc: 449 Interpretive Statements SINUS RHYTHM WITH OCCASIONAL VENTRICULAR PREMATURE COMPLEXES POSSIBLE LEFT ATRIAL ENLARGEMENT [-0.1mV P-WAVE IN V1/V2] ST DEVIATION AND MODERATE T-WAVE ABNORMALITY, CONSIDER LATERAL ISCHEMIA [-0.1+ mV T-WAVE IN I/aVL/V5/V6] No previous ECG available for comparison Electronically Signed On 08-17-2022 1:31:53 CDT by Akilah Christian M.D. [id number]
[2022-08-16 04:11] VITALS: BP 127/79; PULSE 94; RESP 15; O2SAT 95
--- NOTE | 2022-08-16 04:16 | XRR_ITS ---
PROCEDURE INFORMATION: Exam: XR Chest Exam date and time: 08/16/2022 4:48 AM Age: 67 years old Clinical indication: Pain; Chest pressure; Additional info: Cp TECHNIQUE: Imaging protocol: Radiologic exam of the chest. Views: 1 view. COMPARISON: No relevant prior studies available. FINDINGS: Lungs: There is no consolidation. Pleural spaces: There is no pleural effusion or pneumothorax. Heart/Mediastinum: There is mild enlargement of the cardiac silhouette. Bones/joints: Bones are unremarkable. XR/XR chest 1V portable [id number] IMPRESSION: No acute findings.
[2022-08-16 04:20] LABS: Basophils # 0.1 10^3/uL (0.0-0.1); Basophils % 0.6 %; Eosinophils # 0.3 10^3/uL (0.0-0.8); Eosinophils % 3.3 %; Hematocrit 35.4 % (42.0-52.0); Hemoglobin 10.6 g/dL (11.7-16.6); Lymphocytes # 1.1 10^3/uL (0.8-4.8); Lymphocytes % 12.2 %; Mean Corpuscular HGB Conc 29.9 g/dL (30.0-36.0); Mean Corpuscular Hemoglobin 25.9 pg (28.0-34.0); Mean Corpuscular Volume 86.3 fl (80-94); Mean Platelet Volume 11.1 fL (7.4-10.4); Monocytes # 0.9 10^3/uL (0.2-0.9); Monocytes % 10.4 %; Neutrophils # 6.16 10^3/uL (1.8-7.7); Neutrophils % 69.4 %; Nucleated Red Blood Cells % 0 %; Platelet Count 161 10^3/cmm (130-400); Red Cell Distribution Width 19.4 % (12.1-15.1); White Blood Count 8.9 10^3/uL (4.0-10.0)
[2022-08-16 04:32] LABS: INR 1.28 (0.8-1.2)
[2022-08-16 04:40] LABS: Alanine Aminotransferase 16 U/L (0-41); Albumin Level 3.3 g/dL (3.5-5.2); Alkaline Phosphatase 108 U/L (40-130); Anion Gap 16.7 (5-19); Aspartate Amino Transferase 16 U/L (0-40); Blood Urea Nitrogen 37 mg/dL (8-23); Carbon Dioxide 24 mmol/L (22-29); Chloride 101 mmol/L (98-107); Globulin 4.3 g/dL (1.3-4.6); Glomerular Filtration Rate 55.2 mL/min (90-130); Glucose 100 mg/dL (65-115); Lipase 33 U/L (13-60); Osmolality Calculated 293 mOsm/kg (285-295); Potassium 4.7 mmol/L (3.5-5.1); Sodium 137 mmol/L (136-145); Total Bilirubin 0.2 mg/dL (0.15-1.2); Total Protein 7.6 g/dL (6.6-8.7)
[2022-08-16 04:41] VITALS: PULSE 98; RESP 21; O2SAT 95
[2022-08-16 04:46] LABS: Slide Review Slide Review Perform
[2022-08-16 04:54] LABS: Digoxin 0.4 ng/mL (0.6-1.2); Troponin(5th) Baseline 31 ng/L (0-15)
[2022-08-16 06:00] VITALS: PULSE 95; O2SAT 95
[2022-08-16] MEDS: acetaminophen 325 mg Tablet 650 MG PO (06:05)
[2022-08-16 06:54] LABS: Troponin 5 2HR 29.71 ng/L (0-15)
[2022-08-16 07:00] VITALS: PULSE 96; RESP 16; O2SAT 98
[2022-08-16 07:01] LABS: Troponin 5 2HR Delta -1.29 ABS# (0-10)
[2022-08-16 07:37] VITALS: BP 110/60; PULSE 96; RESP 16; O2SAT 98
== END 2022-08-16 07:38 | disposition home or self-care (01) ==
PROVIDERS: Emergency Medicine; Emergency Provider Family Medicine; PCP Family Medicine
DX: R07.89 Other chest pain (principal); Z79.85 Long-term (current) use of injectable non-insulin antidiabetic drugs; Z79.02 Long term (current) use of antithrombotics/antiplatelets; Z79.82 Long term (current) use of aspirin; I50.9 Heart failure, unspecified; Z87.891 Personal history of nicotine dependence
CPT/HCPCS: 36415; 71045; 80053; 80162; 83690; 84484; 85025; 85610; 93005; 99285